=== PATIENT | male | born 1990 | race Two or more races ===

== ENCOUNTER → 2025-08-11 | Outpatient (CLI) | payer MEDICAID, SELFPAY ==
--- NOTE | 2025-08-11 16:00 | XR_ITS ---
EXAMINATION: Thyroid sonography complete TECHNIQUE: Grayscale sonographic images thyroid lobes Date and time: August 11, 2025, 1629 hours INDICATIONS: Thyroid nodules noted on CT cervical spine May 14, 2025. FINDINGS: Right thyroid 4.5 cm Mid pole nodule 3 x 4 mm Left thyroid 4.6 cm No thyroid nodules IMPRESSION: Small benign-appearing right thyroid nodule
== END | disposition home or self-care (01) ==
PROVIDERS: PCP Nurse Practitioner Family; Referring Provider Nurse Practitioner Family; Visit Provider Nurse Practitioner Family
DX: E04.1 Nontoxic single thyroid nodule (principal)
CPT/HCPCS: 76536